=== PATIENT | female | born 1995 | race Caucasian/White ===

== ENCOUNTER 2017-07-19 22:17 | Emergency (ER) | payer OTHER ==
[~2017-07-19] VITALS: Ht 167.6 cm; Wt 52.3 kg
[2017-07-19 22:22] VITALS: BP 114/80; PULSE 120; RESP 16; TEMP 98.3; O2SAT 97
[2017-07-19] MEDS ORDERED: SODIUM CHLOR 0.9% 1000 ML INJ 1,000 ML IV SCH (22:26)
[2017-07-19] MEDS ORDERED: VIIB40TA PO (22:28)
[2017-07-19] MEDS ORDERED: TRAZ100T10 PO (22:28)
[2017-07-19] MEDS ORDERED: AMBI10TA PO (22:28)
[2017-07-19] MEDS ORDERED: ALPR.5 PO (22:28)
[2017-07-19] MEDS ORDERED: methylPREDNISolone SOD SUCC 125 MG/2 ML VIAL IV PUSH ONE (22:30)
[2017-07-19] MEDS ORDERED: diphenhydrAMINE HCL 50 MG/ML VIAL IVP ONE (22:30)
[2017-07-19] MEDS ORDERED: SODIUM CHLORIDE 0.9% FLUSH 10 ML FLUSH IV FLUSH PRN (22:30)
[2017-07-19] MEDS ORDERED: PRED20 PO (22:50)
--- NOTE | 2017-07-19 22:51 | PD ---
HPI Chief Complaint: Allergic/Adverse Reaction Time Seen by Provider: 22:26 Travel History International Travel<30 days: No Contact w/Intl Traveler<30days: No Traveled to known affect area: No History of Present Illness HPI 22-year-old female complains of one days of eyes swelling and swelling of the hands. She has no throat fullness or dyspnea. Onset gradual. Duration several hours. A similar prior episodes. Patient denies a history of environmental allergies. No nausea vomiting. No chest pain. Onset gradual. Timing constant. PFSH Social History Tobacco Use: Yes Allergies-Medications (Allergen,Severity, Reaction): Coded Allergies: No Known Allergies (Unverified , 07/19/17) Reported Meds & Prescriptions Reported Meds & Active Scripts Active Prednisone 20 Mg Tab 20 Mg PO DAILY 4 Days Reported Ambien (Zolpidem Tartrate) 10 Mg Tab 10 Mg PO HS PRN Trazodone (Trazodone HCl) 100 Mg Tablet 100 Mg PO HS Xanax (Alprazolam) 0.5 Mg Tab 0.5 Mg PO Q4H PRN Viibryd (Vilazodone) 40 Mg Tab 40 Mg PO DAILY Review of Systems Except as stated in HPI: all other systems reviewed are Neg General / Constitutional: No: Fever Physical Exam Narrative GENERAL: 22-year-old female well-nourished well-developed mild distress SKIN: Warm and dry. HEAD: Atraumatic. Normocephalic. EYES: Minimal swelling about the upper and lower eyelids bilaterally. ENT: No nasal bleeding or discharge. Mucous membranes pink and moist. NECK: Trachea midline. No JVD. CARDIOVASCULAR: Regular rate and rhythm. RESPIRATORY: No accessory muscle use. Clear to auscultation. Breath sounds equal bilaterally. GASTROINTESTINAL: Abdomen soft, non-tender, nondistended. Hepatic and splenic margins not palpable. MUSCULOSKELETAL: Extremities without clubbing, cyanosis. No obvious deformities. Minimal edema about the hands bilaterally. NEUROLOGICAL: Awake and alert. No obvious cranial nerve deficits. Motor grossly within normal limits. Five out of 5 muscle strength in the arms and legs. Normal speech. PSYCHIATRIC: Appropriate mood and affect; insight and judgment normal. Data Data Last Documented VS Vital Signs Date Time Temp Pulse Resp B/P (MAP) Pulse Ox O2 Delivery O2 Flow Rate FiO2 07/19/17 22:22 98.3 120 16 114/80 (91) 97 VS reviewed Orders Orders Ecg Monitoring (07/19/17 22:26) Iv Access Insert/Monitor (07/19/17 22:26) Oximetry (07/19/17 22:26) Diphenhydramine Inj (Benadryl Inj) (07/19/17 22:30) Methylprednisolone So Succ Inj (Solumedr (07/19/17 22:30) Sodium Chlor 0.9% 1000 Ml Inj (Ns 1000 M (07/19/17 22:26) Sodium Chloride 0.9% Flush (Ns Flush) (07/19/17 22:30) Ed Discharge Order (07/19/17 23:53) MDM Medical Decision Making Medical Screen Exam Complete: Yes Emergency Medical Condition: Yes Differential Diagnosis anaphylaxis, angioedema, allergic reaction Narrative Course Solu-Medrol Benadryl and Pepcid and IV fluids given with excellent effect patient ready for discharge Diagnosis Primary Impression: Allergic reaction Qualified Codes: T78.40XA - Allergy, unspecified, initial encounter Med/Other Pt SpecificInfo: Prescription(s) given Scripts Prednisone (Prednisone) 20 Mg Tab 20 MG PO DAILY for 4 Days, #4 TAB 0 Refills Prov: Kirk Conrad MD 07/19/17 Disposition: 01 DISCHARGE HOME Condition: Stable Kirk Conrad MD Jul 19, 2017 22:50
== END 2017-07-20 00:05 | disposition home or self-care (01) ==
LOC: NEPC 22:17
DX: T78.40XA Allergy, unspecified, initial encounter (principal); H02.845 Edema of left lower eyelid; H02.844 Edema of left upper eyelid; H02.842 Edema of right lower eyelid; H02.841 Edema of right upper eyelid; Z72.0 Tobacco use; Z79.899 Other long term (current) drug therapy
CPT/HCPCS: 96374; 96375; 99284; J1200; J2930; J7030

== ENCOUNTER 2017-07-22 17:19 | Emergency (ER) | payer OTHER ==
[~2017-07-22 17:19] MED LIST: ALPR.5 PO; AMBI10TA PO; PRED20 PO; TRAZ100T10 PO; VIIB40TA PO
[2017-07-22 17:21] VITALS: BP 154/69; PULSE 114; RESP 24; TEMP 98.5; O2SAT 94
[2017-07-22] MEDS ORDERED: SODIUM CHLOR 0.9% 1000 ML INJ 1,000 ML IV SCH (17:58)
[2017-07-22] MEDS ORDERED: SODIUM CHLORIDE 0.9% FLUSH 10 ML FLUSH IV FLUSH PRN (18:00)
[2017-07-22] MEDS ORDERED: methylPREDNISolone SOD SUCC 125 MG/2 ML VIAL IM ONE (18:00)
[2017-07-22] MEDS ORDERED: FAMOTIDINE 20 MG/2 ML VIAL IV PUSH ONE (18:00)
[2017-07-22] MEDS ORDERED: diphenhydrAMINE HCL 50 MG/ML VIAL IVP ONE (18:00)
--- NOTE | 2017-07-22 18:05 | PD ---
HPI Chief Complaint: Allergic/Adverse Reaction Time Seen by Provider: 17:52 Travel History International Travel<30 days: No Contact w/Intl Traveler<30days: No Traveled to known affect area: No History of Present Illness HPI 22-year-old female here for evaluation of possible allergic reaction. The patient was seen in the emergency department on 07/19/17 for similar symptoms which resolved with Solu-Medrol, Benadryl, and Pepcid. She was discharged home with a perception for prednisone. Symptoms returned today and consist of diffuse pruritus with hives. Patient denies any known allergies or any known new exposures. She feels anxious. No tongue or lip swelling. No dyspnea. She denies alcohol, drugs, or tobacco use. PFSH Past Medical History Medical History: Denies Significant Hx Diminished Hearing: No Tetanus Vaccination: Unknown ?: Not LMP: 07/17/17 Past Surgical History Surgical History: No Previous Surgery Social History Alcohol Use: No Tobacco Use: Yes Substance Use: No Allergies-Medications (Allergen,Severity, Reaction): Coded Allergies: No Known Allergies (Unverified , 07/19/17) Reported Meds & Prescriptions Reported Meds & Active Scripts Active Prednisone 20 Mg Tab 20 Mg PO DAILY 4 Days Reported Ambien (Zolpidem Tartrate) 10 Mg Tab 10 Mg PO HS PRN Trazodone (Trazodone HCl) 100 Mg Tablet 100 Mg PO HS Xanax (Alprazolam) 0.5 Mg Tab 0.5 Mg PO Q4H PRN Viibryd (Vilazodone) 40 Mg Tab 40 Mg PO DAILY Review of Systems Except as stated in HPI: all other systems reviewed are Neg Physical Exam Narrative GENERAL: Well-developed, well-nourished, in no apparent distress. SKIN: Focused skin assessment warm/dry. Diffuse hive-like lesions. HEAD: Atraumatic. Normocephalic. EYES: Pupils equal and round. No scleral icterus. No injection or drainage. ENT: No nasal bleeding or discharge. Mucous membranes pink and moist. No intraoral lesions. No tongue or lip swelling. No drooling or stridor. NECK: Trachea midline. No JVD. CARDIOVASCULAR: Tachycardic, rate 115, regular. No murmurs. RESPIRATORY: No accessory muscle use. Clear to auscultation. Breath sounds equal bilaterally. GASTROINTESTINAL: Abdomen soft, non-tender, nondistended. MUSCULOSKELETAL: No obvious deformities. No clubbing. No cyanosis. No edema. NEUROLOGICAL: Awake and alert. No obvious cranial nerve deficits. Motor grossly within normal limits. Normal speech. PSYCHIATRIC: Appropriate mood and affect; insight and judgment normal. Data Data Last Documented VS Vital Signs Date Time Temp Pulse Resp B/P (MAP) Pulse Ox O2 Delivery O2 Flow Rate FiO2 07/22/17 18:12 100 07/22/17 17:21 98.5 114 24 Orders Orders Complete Blood Count With Diff (07/22/17 17:58) Comprehensive Metabolic Panel (07/22/17 17:58) Ecg Monitoring (07/22/17 17:58) Iv Access Insert/Monitor (07/22/17 17:58) Oximetry (07/22/17 17:58) Diphenhydramine Inj (Benadryl Inj) (07/22/17 18:00) Methylprednisolone So Succ Inj (Solumedr (07/22/17 18:00) Famotidine Inj (Pepcid Inj) (07/22/17 18:00) Sodium Chlor 0.9% 1000 Ml Inj (Ns 1000 M (07/22/17 17:58) Sodium Chloride 0.9% Flush (Ns Flush) (07/22/17 18:00) Beta Hcg (Quant/Titer) (07/22/17 17:58) Potassium Chloride (Kcl) (07/22/17 20:30) Labs Laboratory Tests Test 07/22/17 18:05 White Blood Count 13.5 TH/MM3 Red Blood Count 4.79 MIL/MM3 Hemoglobin 15.5 GM/DL Hematocrit 45.2 % Mean Corpuscular Volume 94.4 FL Mean Corpuscular Hemoglobin 32.3 PG Mean Corpuscular Hemoglobin Concent 34.2 % Red Cell Distribution Width 14.6 % Platelet Count 357 TH/MM3 Mean Platelet Volume 8.3 FL Neutrophils (%) (Auto) 62.2 % Lymphocytes (%) (Auto) 28.6 % Monocytes (%) (Auto) 7.6 % Eosinophils (%) (Auto) 1.3 % Basophils (%) (Auto) 0.3 % Neutrophils # (Auto) 8.4 TH/MM3 Lymphocytes # (Auto) 3.8 TH/MM3 Monocytes # (Auto) 1.0 TH/MM3 Eosinophils # (Auto) 0.2 TH/MM3 Basophils # (Auto) 0.0 TH/MM3 CBC Comment DIFF FINAL Differential Comment Blood Urea Nitrogen 3 MG/DL Creatinine 0.61 MG/DL Random Glucose 84 MG/DL Total Protein 6.6 GM/DL Albumin 3.4 GM/DL Calcium Level 8.6 MG/DL Alkaline Phosphatase 67 U/L Aspartate Amino Transf (AST/SGOT) 22 U/L Alanine Aminotransferase (ALT/SGPT) 17 U/L Total Bilirubin 0.7 MG/DL Sodium Level 136 MEQ/L Potassium Level 3.0 MEQ/L Chloride Level 100 MEQ/L Carbon Dioxide Level 21.6 MEQ/L Anion Gap 14 MEQ/L Estimat Glomerular Filtration Rate 121 ML/MIN Human Chorionic Gonadotropin, Quant LESS THAN 1 MIU/ML MDM Medical Decision Making Medical Screen Exam Complete: Yes Emergency Medical Condition: Yes Medical Record Reviewed: Yes Differential Diagnosis Allergic reaction, anaphylaxis Narrative Course Initial vital signs show heart rate 114, blood pressure 154/69, pulse ox 94% on room air, tympanic temp 98.5F. CBC: WBC 13.5, hemoglobin 15.5, hematocrit 45.2, platelets 357. CMP is remarkable for potassium 3.0 which was replaced orally, otherwise remarkable. The patient was given IV site Medrol, IV Benadryl, and IV Pepcid with improvement in hives and pruritus. She is not displaying any signs or symptoms of anaphylaxis. She is stable for discharge home with further workup as an outpatient with a primary care physician this week. She tells me that she took her last dose of Xanax today and her prescription is not due for refill for another couple of days. I will give her a short course of Xanax to help her through this that she states she has not been sleeping well because of the prednisone. She still has 2 days left of prednisone which I encouraged her to take. I will also give her a prescription for an EpiPen. She was advised on when to return to the emergency department. She verbalizes understanding and agreement with plan Diagnosis Primary Impression: Allergic reaction Qualified Codes: T78.40XA - Allergy, unspecified, initial encounter Referrals: Primary Care Physician 3 days Additional Instructions: Follow-up with a primary care physician this week. Take medications as prescribed. Return to the emergency department for worsening symptoms or any other concerns. Scripts Epinephrine Inj (Epipen 2-Gil Inj) 0.3 Mg/0.3 Ml Pfpen 0.3 MG IM ONCE Y for ALLERGIC REACTION, #1 PACK 0 Refills Prov: Rupert Arias MD 07/22/17 Alprazolam (Xanax) 0.5 Mg Tab 0.5 MG PO Q6H Y for ANXIETY, #4 TAB 0 Refills Prov: Rupert Arias MD 07/22/17 Disposition: 01 DISCHARGE HOME Condition: Stable Rupert Arias MD Jul 22, 2017 18:05
[2017-07-22 18:12] VITALS: O2SAT 100
[2017-07-22 18:29] LABS: AUTOMATED NEUTROPHIL # 8.4 TH/MM3 (1.8-7.7); BASOPHIL % 0.3 % (0.0-2.0); EOSINOPHIL # 0.2 TH/MM3 (0-0.4); EOSINOPHIL % 1.3 % (0.0-4.0); HEMATOCRIT 45.2 % (35.0-46.0); HEMOGLOBIN 15.5 GM/DL (11.6-15.3); LYMPH % 28.6 % (9.0-44.0); LYMPHOCYTE # 3.8 TH/MM3 (1.0-4.8); MEAN CELL VOLUME 94.4 FL (80.0-100.0); MEAN CORPUSCULAR HEMOGLOBIN 32.3 PG (27.0-34.0); MEAN CORPUSCULAR HGB CONC 34.2 % (32.0-36.0); MEAN PLATELET VOLUME 8.3 FL (7.0-11.0); MONO % 7.6 % (0.0-8.0); NEUT % 62.2 % (16.0-70.0); PLATELET COUNT 357 TH/MM3 (150-450); RED BLOOD COUNT 4.79 MIL/MM3 (4.00-5.30); RED CELL DISTRIBUTION WIDTH 14.6 % (11.6-17.2); WHITE BLOOD COUNT 13.5 TH/MM3 (4.0-11.0)
[2017-07-22 18:45] LABS: ALBUMIN 3.4 GM/DL (3.4-5.0); ALT (GPT) 17 U/L (10-53); AST (GOT) 22 U/L (15-37); BICARBONATE 21.6 MEQ/L (21.0-32.0); BLOOD UREA NITROGEN 3 MG/DL (7-18); CALCIUM 8.6 MG/DL (8.5-10.1); CHLORIDE 100 MEQ/L (98-107); CREATININE 0.61 MG/DL (0.50-1.00); GLOMERULAR FILTRATION RATE 121 ML/MIN (>89); GLUCOSE,RANDOM 84 MG/DL (74-106); SODIUM (NA) 136 MEQ/L (136-145)
[2017-07-22 18:49] LABS: ALKALINE PHOSPHATASE 67 U/L (45-117); TOTAL BILIRUBIN ADULT 0.7 MG/DL (0.2-1.0); TOTAL PROTEIN 6.6 GM/DL (6.4-8.2)
[2017-07-22] MEDS ORDERED: POTASSIUM CHLORIDE 20 MEQ CONTROLLED RELEASE TAB PO ONE (20:30)
[2017-07-22] MEDS ORDERED: EPIP0.3I IM (20:35)
[2017-07-22] MEDS ORDERED: ALPR.5 PO (20:35)
== END 2017-07-22 21:35 | disposition home or self-care (01) ==
LOC: NEPD 17:19
DX: T78.40XA Allergy, unspecified, initial encounter (principal); L50.9 Urticaria, unspecified; L29.9 Pruritus, unspecified; R00.0 Tachycardia, unspecified; Z72.0 Tobacco use; Z79.899 Other long term (current) drug therapy
CPT/HCPCS: 80053; 84702; 85025; 96361; 96372; 96374; 96375; 99284; J1200; J2930; J7030

== ENCOUNTER 2017-09-03 14:51 | Emergency (ER) | payer OTHER ==
[~2017-09-03] VITALS: Ht 167.6 cm; Wt 55.0 kg
[~2017-09-03 14:51] MED LIST changes: +EPIP0.3I IM
[2017-09-03] MEDS ORDERED: LORazepam 2 MG/ML VIAL ONE (15:26)
[2017-09-03] MEDS ORDERED: diphenhydrAMINE HCL 50 MG/ML VIAL ONE (15:26)
[2017-09-03] MEDS ORDERED: ZIPRASIDONE MESYLATE 20 MG VIAL IM ONE ×2 (15:26→15:30)
[2017-09-03] MEDS ORDERED: diphenhydrAMINE HCL 50 MG/ML VIAL IM ONE (15:30)
[2017-09-03 16:00] VITALS: BP 137/76; PULSE 125; RESP 18; O2SAT 95
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
[2017-09-03 17:11] LABS: AUTOMATED NEUTROPHIL # 21.5 TH/MM3 (1.8-7.7); BASOPHIL # 0.1 TH/MM3 (0-0.2); BASOPHIL % 0.2 % (0.0-2.0); EOSINOPHIL % 0.1 % (0.0-4.0); HEMOGLOBIN 13.4 GM/DL (11.6-15.3); LYMPHOCYTE # 1.2 TH/MM3 (1.0-4.8); MEAN CELL VOLUME 92.9 FL (80.0-100.0); MEAN CORPUSCULAR HEMOGLOBIN 31.1 PG (27.0-34.0); MEAN CORPUSCULAR HGB CONC 33.5 % (32.0-36.0); MEAN PLATELET VOLUME 7.1 FL (7.0-11.0); MONO % 4.9 % (0.0-8.0); MONOCYTE # 1.2 TH/MM3 (0-0.9); NEUT % 89.8 % (16.0-70.0); PLATELET COUNT 366 TH/MM3 (150-450); RED BLOOD COUNT 4.31 MIL/MM3 (4.00-5.30); RED CELL DISTRIBUTION WIDTH 14.6 % (11.6-17.2)
[2017-09-03 17:41] LABS: ALBUMIN 3.9 GM/DL (3.4-5.0); ALKALINE PHOSPHATASE 80 U/L (45-117); ALT (GPT) 17 U/L (10-53); AST (GOT) 16 U/L (15-37); BICARBONATE 25.6 MEQ/L (21.0-32.0); BLOOD UREA NITROGEN 5 MG/DL (7-18); CALCIUM 8.3 MG/DL (8.5-10.1); CHLORIDE 104 MEQ/L (98-107); CREATININE 0.66 MG/DL (0.50-1.00); GLOMERULAR FILTRATION RATE 110 ML/MIN (>89); GLUCOSE,RANDOM 95 MG/DL (74-106); SODIUM (NA) 139 MEQ/L (136-145); TOTAL BILIRUBIN ADULT 0.7 MG/DL (0.2-1.0); TOTAL PROTEIN 7.3 GM/DL (6.4-8.2)
[2017-09-03 17:45] LABS: ACETAMINOPHEN LESS THAN 2.0 MCG/ML (10.0-30.0)
[2017-09-03 18:57] LABS: AMORPHOUS SEDIMENT, URINE RARE; BACTERIA, URINE MANY /hpf; BILIRUBIN, URINE NEG (NEG); BLOOD, URINE NEG (NEG); GLUCOSE,URINE NEG (NEG); KETONE, URINE NEG (NEG); MUCUS URINE MOD /lpf (OCC); NITRITE,URINE NEG (NEG); PH, URINE 6.5 (5.0-8.5); SQUAMOUS EPITHELIAL CELL URINE 42 /hpf (0-5); TRANSITIONAL EPI CELLS, URINE 1 /hpf; URINE COLOR YELLOW (YELLW/STRAW); URINE LEUKOCYTE ESTERASE NEG (NEG)
[2017-09-03 19:03] VITALS: BP 102/55; PULSE 113; RESP 18; TEMP 99.9; O2SAT 97
[2017-09-03] MEDS ORDERED: SODIUM CHLOR 0.9% 1000 ML INJ 1,000 ML IV ONE (19:30)
[2017-09-03] MEDS ORDERED: ACETAMINOPHEN 1000 MG/100 ML 100 ML IV ONE (19:30)
--- NOTE | 2017-09-03 20:03 | RADRPT ---
EXAM DATE/TIME: 09/03/2017 19:31 [facility] COMPARISON: No previous studies available for comparison. INDICATIONS : Shortness of breath. MEDICAL HISTORY : None. SURGICAL HISTORY : None. ENCOUNTER: Initial ACUITY: 1 day PAIN SCORE: 0/10 LOCATION: Bilateral chest FINDINGS: A single view of the chest demonstrates the lungs to be symmetrically aerated without evidence of mas s, infiltrate or effusion. The cardiomediastinal contours are unremarkable. Osseous structures are intact. CONCLUSION: No acute disease. Dino Schaefer MD on September 03, 2017 at 20:00 Board Certified Radiologist. This report was verified electronically.
[2017-09-03 20:10] VITALS: PULSE 102; RESP 16; TEMP 98.5; O2SAT 99
--- NOTE | 2017-09-03 20:36 | PD ---
Physical Exam Date Seen by Provider: Sep 03, 2017 Time Seen by Provider: 19:00 Narrative For full history and physical examination please see previous provider's note. Patient was moved from pod due to elevated white blood cell count, tachycardia and fever. She reported that she's been nauseous and vomiting for the last 2 days. She has no other symptoms to report. She denies any dysuria, change in bowel habits, fevers, headache, chest pain or shortness of breath. Data Data Last Documented VS Vital Signs Date Time Temp Pulse Resp B/P (MAP) Pulse Ox O2 Delivery O2 Flow Rate FiO2 09/03/17 20:10 98.5 102 16 99 Room Air Orders Orders Restraints Violent (09/03/17 15:20) Ziprasidone Inj (Geodon Inj) (09/03/17 15:30) Diphenhydramine Inj (Benadryl Inj) (09/03/17 15:30) Lorazepam Inj (Ativan Inj) (09/03/17 15:26) Diphenhydramine Inj (Benadryl Inj) (09/03/17 15:26) Ziprasidone Inj (Geodon Inj) (09/03/17 15:26) Complete Blood Count With Diff (09/03/17 15:48) Comprehensive Metabolic Panel (09/03/17 15:48) Urinalysis - C+S If Indicated (09/03/17 15:48) Ed Urine Pregnancytest Poc (09/03/17 15:48) Psych Screen (09/03/17 15:48) Drug Screen, Random Urine (09/03/17 15:48) Alcohol (Ethanol) (09/03/17 15:48) Salicylates (Aspirin) (09/03/17 15:48) Tylenol (Acetaminophen) (09/03/17 15:48) Diet Regular Basic (09/03/17 Dinner) Urine Culture (09/03/17 18:00) Chest, Single Ap (09/03/17 ) Influenzae A/B Antigen (09/03/17 19:21) Sodium Chlor 0.9% 1000 Ml Inj (Ns 1000 M (09/03/17 19:30) Acetaminophen 1000 Mg/100 Ml (Ofirmev 10 (09/03/17 19:30) Ct Abd/Pel W/O Iv Contrast (09/03/17 ) Lorazepam Inj (Ativan Inj) (09/03/17 21:00) Cephalexin (Keflex) (09/03/17 21:30) Cephalexin (Keflex) (09/04/17 08:00) Labs Laboratory Tests Test 09/03/17 16:35 09/03/17 18:00 White Blood Count 24.0 TH/MM3 Red Blood Count 4.31 MIL/MM3 Hemoglobin 13.4 GM/DL Hematocrit 40.0 % Mean Corpuscular Volume 92.9 FL Mean Corpuscular Hemoglobin 31.1 PG Mean Corpuscular Hemoglobin Concent 33.5 % Red Cell Distribution Width 14.6 % Platelet Count 366 TH/MM3 Mean Platelet Volume 7.1 FL Neutrophils (%) (Auto) 89.8 % Lymphocytes (%) (Auto) 5.0 % Monocytes (%) (Auto) 4.9 % Eosinophils (%) (Auto) 0.1 % Basophils (%) (Auto) 0.2 % Neutrophils # (Auto) 21.5 TH/MM3 Lymphocytes # (Auto) 1.2 TH/MM3 Monocytes # (Auto) 1.2 TH/MM3 Eosinophils # (Auto) 0.0 TH/MM3 Basophils # (Auto) 0.1 TH/MM3 CBC Comment DIFF FINAL Differential Comment Blood Urea Nitrogen 5 MG/DL Creatinine 0.66 MG/DL Random Glucose 95 MG/DL Total Protein 7.3 GM/DL Albumin 3.9 GM/DL Calcium Level 8.3 MG/DL Alkaline Phosphatase 80 U/L Aspartate Amino Transf (AST/SGOT) 16 U/L Alanine Aminotransferase (ALT/SGPT) 17 U/L Total Bilirubin 0.7 MG/DL Sodium Level 139 MEQ/L Potassium Level 3.2 MEQ/L Chloride Level 104 MEQ/L Carbon Dioxide Level 25.6 MEQ/L Anion Gap 9 MEQ/L Estimat Glomerular Filtration Rate 110 ML/MIN Salicylates Level LESS THAN 1.7 MG/DL Acetaminophen Level LESS THAN 2.0 MCG/ML Ethyl Alcohol Level LESS THAN 3 MG/DL Urine Color YELLOW Urine Turbidity HAZY Urine pH 6.5 Urine Specific [place] 1.014 Urine Protein 30 mg/dL Urine Glucose (UA) NEG mg/dL Urine Ketones NEG mg/dL Urine Occult Blood NEG Urine Nitrite NEG Urine Bilirubin NEG Urine Urobilinogen 2.0 MG/DL Urine Leukocyte Esterase NEG Urine RBC 2 /hpf Urine WBC 6 /hpf Urine Squamous Epithelial Cells 42 /hpf Urine Transitional Epithelial Cells 1 /hpf Urine Amorphous Sediment RARE Urine Bacteria MANY /hpf Urine Mucus MOD /lpf Microscopic Urinalysis Comment CULTURE INDICATED Urine Opiates Screen NEG Urine Barbiturates Screen NEG Urine Amphetamines Screen NEG Urine Benzodiazepines Screen POS Urine Cocaine Screen NEG Urine Cannabinoids Screen POS MDM Medical Record Reviewed: Yes Supervised Visit with CLEMENCIA: No Interpretation(s) Last Impressions Chest X-Ray 09/03/17 0000 Signed Impressions: Service Date/Time: September 19:31 - CONCLUSION: No acute disease. Dino Schaefer MD Abdomen/Pelvis CT 09/03/17 0000 Signed Impressions: Service Date/Time: September 20:40 - CONCLUSION: No acute intra-abdominal process disease. Minimal atelectasis within the right anterior lung base. Dino Schaefer MD Laboratory Tests Test 09/03/17 16:35 09/03/17 18:00 White Blood Count 24.0 TH/MM3 Red Blood Count 4.31 MIL/MM3 Hemoglobin 13.4 GM/DL Hematocrit 40.0 % Mean Corpuscular Volume 92.9 FL Mean Corpuscular Hemoglobin 31.1 PG Mean Corpuscular Hemoglobin Concent 33.5 % Red Cell Distribution Width 14.6 % Platelet Count 366 TH/MM3 Mean Platelet Volume 7.1 FL Neutrophils (%) (Auto) 89.8 % Lymphocytes (%) (Auto) 5.0 % Monocytes (%) (Auto) 4.9 % Eosinophils (%) (Auto) 0.1 % Basophils (%) (Auto) 0.2 % Neutrophils # (Auto) 21.5 TH/MM3 Lymphocytes # (Auto) 1.2 TH/MM3 Monocytes # (Auto) 1.2 TH/MM3 Eosinophils # (Auto) 0.0 TH/MM3 Basophils # (Auto) 0.1 TH/MM3 CBC Comment DIFF FINAL Differential Comment Blood Urea Nitrogen 5 MG/DL Creatinine 0.66 MG/DL Random Glucose 95 MG/DL Total Protein 7.3 GM/DL Albumin 3.9 GM/DL Calcium Level 8.3 MG/DL Alkaline Phosphatase 80 U/L Aspartate Amino Transf (AST/SGOT) 16 U/L Alanine Aminotransferase (ALT/SGPT) 17 U/L Total Bilirubin 0.7 MG/DL Sodium Level 139 MEQ/L Potassium Level 3.2 MEQ/L Chloride Level 104 MEQ/L Carbon Dioxide Level 25.6 MEQ/L Anion Gap 9 MEQ/L Estimat Glomerular Filtration Rate 110 ML/MIN Salicylates Level LESS THAN 1.7 MG/DL Acetaminophen Level LESS THAN 2.0 MCG/ML Ethyl Alcohol Level LESS THAN 3 MG/DL Urine Color YELLOW Urine Turbidity HAZY Urine pH 6.5 Urine Specific [place] 1.014 Urine Protein 30 mg/dL Urine Glucose (UA) NEG mg/dL Urine Ketones NEG mg/dL Urine Occult Blood NEG Urine Nitrite NEG Urine Bilirubin NEG Urine Urobilinogen 2.0 MG/DL Urine Leukocyte Esterase NEG Urine RBC 2 /hpf Urine WBC 6 /hpf Urine Squamous Epithelial Cells 42 /hpf Urine Transitional Epithelial Cells 1 /hpf Urine Amorphous Sediment RARE Urine Bacteria MANY /hpf Urine Mucus MOD /lpf Microscopic Urinalysis Comment CULTURE INDICATED Urine Opiates Screen NEG Urine Barbiturates Screen NEG Urine Amphetamines Screen NEG Urine Benzodiazepines Screen POS Urine Cocaine Screen NEG Urine Cannabinoids Screen POS Vital Signs Date Time Temp Pulse Resp B/P (MAP) Pulse Ox O2 Delivery O2 Flow Rate FiO2 09/03/17 20:10 98.5 102 16 99 Room Air 09/03/17 19:03 99.9 113 18 102/55 (71) 97 Room Air 09/03/17 16:00 125 18 137/76 (96) 95 Room Air Differential Diagnosis Influenza versus UTI versus gastroenteritis versus stress response versus other Narrative Course Patient is a 22-year-old female presenting to emergency Department under Chan act for psychiatric evaluation. She was noted to have a white blood cell count of 24 with left shift. Potassium 3.2, urinalysis with 6 white blood cells, many bacteria and moderate mucus reflex urine culture pending. Urine drug screen is positive for benzodiazepines and marijuana, salicylate, acetaminophen and alcohol levels are unremarkable. Chest x-ray shows no acute disease. Influenza is negative. Patient's vital signs were reassessed, she is afebrile, her heart rate has trended down to 102. She is resting comfortably in no acute distress. CT scan of the abdomen and pelvis is pending. Patient refused IV, IV fluids and acetaminophen. CT scan abdomen and pelvis shows no acute abnormality. It does notate right anterior lower lobe atelectasis. Patient will be treated for urinary tract infection, first dose of Keflex as ordered for tonight and for the morning. Patient will be given a prescription to complete full course of antibiotics should she be discharged. Antibiotic should be continued while inpatient if she is admitted. [facility] for psychiatric evaluation. Diagnosis Primary Impression: biplar disorder Additional Impressions: Medical clearance for psychiatric admission UTI (urinary tract infection) Qualified Codes: N39.0 - Urinary tract infection, site not specified Scripts Cephalexin (Keflex) 500 Mg Cap 500 MG PO Q12H for Infection for 7 Days, #14 CAP 0 Refills Prov: Dorita Causey 09/03/17 Condition: Stable Dorita Causey Sep 03, 2017 20:36
[2017-09-03] MEDS ORDERED: LORazepam 2 MG/ML VIAL IM ONE (21:00)
--- NOTE | 2017-09-03 21:14 | RADRPT ---
EXAM DATE/TIME: 09/03/2017 20:40 [facility] COMPARISON: No previous studies available for comparison. INDICATIONS : Fever, nausea and vomiting. Elevated white cell count. ORAL CONTRAST: No oral contrast ingested. RADIATION DOSE: 6.64 CTDIvol (mGy) MEDICAL HISTORY : None SURGICAL HISTORY : None. ENCOUNTER: Initial ACUITY: 1 day PAIN SCALE: 0/10 LOCATION: Abdomen. TECHNIQUE: Volumetric scanning of the abdomen and pelvis was performed. Using automated exposure control and ad justment of the mA and/or kV according to patient size, radiation dose was kept as low as reasonably achievable to obtain optimal diagnostic quality images. DICOM format image data is available electro nically for review and comparison. FINDINGS: LOWER LUNGS: Minimal atelectasis within the right lung base anteriorly. LIVER: Homogeneous density without lesion. There is no dilation of the biliary tree. No calcified gallston es. SPLEEN: Normal size without lesion. PANCREAS: Within normal limits. KIDNEYS: Normal in size and shape. There is no mass, stone, or hydronephrosis. ADRENAL GLANDS: Within normal limits. VASCULAR: There is no aortic aneurysm. BOWEL/MESENTERY: The stomach, small bowel, and colon demonstrate no acute abnormality. There is no free intraperitone al air or fluid. The appendix is normal. ABDOMINAL WALL: Within normal limits. RETROPERITONEUM: There is no lymphadenopathy. BLADDER: No wall thickening or mass. REPRODUCTIVE: Within normal limits. INGUINAL: There is no lymphadenopathy or hernia. MUSCULOSKELETAL: Within normal limits for patient age. CONCLUSION: No acute intra-abdominal process disease. Minimal atelectasis within the right anterior lung base. Dino Schaefer MD on September 03, 2017 at 21:06 Board Certified Radiologist. This report was verified electronically.
[2017-09-03] MEDS ORDERED: CEPH-460 PO (21:25)
[2017-09-03] MEDS ORDERED: CEPHALEXIN MONOHYDRATE 500 MG CAP PO ONE (21:30)
[2017-09-03] MEDS ORDERED: traZODone HCL 100 MG TAB PO ONE (21:45)
[2017-09-04 05:46] VITALS: BP 106/58; PULSE 98; O2SAT 100
[2017-09-04 07:37] VITALS: BP 103/58; PULSE 96; RESP 17; TEMP 98.3; O2SAT 100
[2017-09-04] MEDS ORDERED: CEPHALEXIN MONOHYDRATE 500 MG CAP PO ONE (08:00)
[2017-09-04] MEDS ORDERED: ONDANSETRON ODT 4 MG TAB PO ONE (08:15)
== END 2017-09-04 09:58 | disposition short-term general hospital (02) ==
LOC: NEPJ 14:51 → NEPD 09-04 09:58
DX: N39.0 Urinary tract infection, site not specified (principal); S61.512A Laceration without foreign body of left wrist, initial encounter; S61.511A Laceration without foreign body of right wrist, initial encounter; F19.90 Other psychoactive substance use, unspecified, uncomplicated; F12.90 Cannabis use, unspecified, uncomplicated; J98.11 Atelectasis; R00.0 Tachycardia, unspecified; Z79.899 Other long term (current) drug therapy; X78.8XXA Intentional self-harm by other sharp object, initial encounter
CPT/HCPCS: 71045; 74176; 80053; 80307; 81001; 84703; 85025; 87086; 87804; 96372; 99285; J1200; J2060; J3486